=== PATIENT | male | born 1945 | race Native Hawaiian/Other Pacific Islander ===

== ENCOUNTER 2020-08-24 15:26 | Inpatient (IN) | payer MEDICARE, OTHER ==
[~2020-08-24] VITALS: Ht 160 cm; Wt 66.2 kg
[2020-08-24 18:40] VITALS: BP 142/78
[2020-08-24] MEDS ORDERED: CHOLECALCIFEROL (VIT D3) 1,000 UNITS [25 MCG] TABLET GT SCH (19:15)
[2020-08-24] MEDS ORDERED: ACETAMINOPHEN 325 MG TABLET PO PRN (19:15)
[2020-08-24] MEDS ORDERED: DEXTROSE 50%-WATER 25 GM/50 ML SYRINGE IVP PRN (19:30)
[2020-08-24 20:46] VITALS: BP 121/80
[2020-08-24] MEDS ORDERED: DOCUSATE SODIUM 100 MG CAPSULE PO SCH (21:00)
[2020-08-24] MEDS ORDERED: SENNA 187 MG TABLET PO SCH (21:00)
[2020-08-24] MEDS: BACLOFEN 10 MG TABLET GT SCH (21:06)
[2020-08-24] MEDS: CARVEDILOL 12.5 MG TABLET GT SCH (21:07)
[2020-08-24] MEDS: ATORVASTATIN CALCIUM 40 MG TABLET GT SCH (21:07)
[2020-08-24] MEDS: INSULIN LISPRO 100 UNITS/ML SQ PRN (21:08)
[2020-08-24 21:38] LABS: GLUCOMETER DEV NAME(LOC) 2WR.1C; GLUCOSE,POINT OF CARE 198 MG/DL (70-110)
[2020-08-24] MEDS ORDERED: ACETAMINOPHEN 650 MG/20.3 ML SOLUTION UDCUP GT PRN (22:15)
[2020-08-25] VITALS: BP 118/74
[2020-08-25 06:03] LABS: GLUCOMETER DEV NAME(LOC) 2WR.2B; GLUCOSE,POINT OF CARE 109 MG/DL (70-110)
[2020-08-25 08:10] VITALS: BP 140/80
[2020-08-25 08:18] LABS: BASOPHILS % (AUTO) 0.8 % (0.0-2.0); EOSINOPHILS % (AUTO) 4.9 % (1.0-6.0); HEMATOCRIT 34.7 % (41-53); HEMOGLOBIN 11.5 g/dL (13.5-17.5); LYMPHOCYTES # (AUTO) 1.7 K/uL (1.0-4.8); LYMPHOCYTES % (AUTO) 21.9 % (22.0-44.0); MEAN CORPUSCULAR HEMOGLOBIN 29.6 pg (26.0-34.0); MEAN CORPUSCULAR HGB CONC 33.1 G/dL (31.0-37.0); MEAN CORPUSCULAR VOLUME 90 fL (80-100); MONOCYTES # (AUTO) 0.7 K/uL (0.1-1.0); NEUTROPHILS # (AUTO) 4.8 K/uL (1.8-7.7); NEUTROPHILS % (AUTO) 63.4 % (40.0-70.0); PLATELET COUNT (AUTO) 300 K/uL (150-450); RED BLOOD CELL COUNT(AUTO) 3.87 MIL/uL (4.50-5.90); RED CELL DISTRIBUTION WIDTH 14.2 % (11.5-14.5)
[2020-08-25 08:19] LABS: ALANINE AMINOTRANSFERASE 59 U/L (12-78); ALBUMIN 2.9 g/dL (3.4-5.0); ALKALINE PHOSPHATASE 112 U/L (46-116); ANION GAP 6 mmol/L (8-16); ASPARTATE AMINOTRANSFERASE 38 U/L (15-37); BILIRUBIN,TOTAL 0.7 mg/dL (0.1-1.0); CALCIUM, TOTAL 8.8 mg/dL (8.8-10.5); CARBON DIOXIDE 29 mmol/L (22-29); CHLORIDE 102 mmol/L (98-107); CREATININE 0.94 mg/dL (0.60-1.30); GLUCOSE,RANDOM 116 mg/dL (70-110); POTASSIUM 3.8 mmol/L (3.5-5.1); SODIUM SERUM 137 mmol/L (136-145); TOTAL PROTEIN, SERUM 7.5 g/dL (6.4-8.2); UREA NITROGEN, BLOOD 14 mg/dL (7-18)
[2020-08-25 08:20] LABS: GLOMERULAR FILTR. RATE CALC > 60 mL/min (>60)
[2020-08-25] MEDS: CARVEDILOL 12.5 MG TABLET GT SCH ×2 (10:05→20:38)
[2020-08-25] MEDS: BACLOFEN 10 MG TABLET GT SCH ×2 (10:06→20:38)
[2020-08-25] MEDS: DOCUSATE SODIUM 100 MG/10 ML LIQUID UDCUP GT SCH ×2 (10:06→20:38)
[2020-08-25] MEDS: PRENATAL NO.137/IRON/FOLIC ACID TABLET GT SCH (10:06)
[2020-08-25] MEDS: CHOLECALCIFEROL (VIT D3) 1,000 UNITS [25 MCG] TABLET GT SCH (10:06)
[2020-08-25] MEDS: LANSOPRAZOLE 30 MG SOLUBLE TABLET GT SCH (10:06)
[2020-08-25] MEDS: AmLODIPine BESYLATE 5 MG TABLET GT SCH (10:06)
[2020-08-25 13:07] LABS: GLUCOMETER DEV NAME(LOC) 2WR.2B; GLUCOSE,POINT OF CARE 130 MG/DL (70-110)
[2020-08-25 16:00] VITALS: BP 119/72
[2020-08-25] MEDS: INSULIN LISPRO 100 UNITS/ML SQ PRN ×2 (17:59→21:09)
[2020-08-25 18:24] LABS: GLUCOMETER DEV NAME(LOC) 2WR.2B; GLUCOSE,POINT OF CARE 165 MG/DL (70-110)
[2020-08-25] MEDS ORDERED: PNEUMOCOCCAL VACCINE POLYVALENT 0.5 ML VIAL [PPSV23] IM. ONE (19:15)
[2020-08-25 20:35] VITALS: BP 125/77
[2020-08-25] MEDS: SENNA 218 MG/5 ML SYRUP ORAL.SYG GT SCH (20:38)
[2020-08-25] MEDS: ATORVASTATIN CALCIUM 40 MG TABLET GT SCH (20:38)
[2020-08-25 21:29] LABS: GLUCOMETER DEV NAME(LOC) 2WR.2B; GLUCOSE,POINT OF CARE 146 MG/DL (70-110)
[2020-08-26 03:41] VITALS: BP 127/77
[2020-08-26 06:45] LABS: GLUCOMETER DEV NAME(LOC) 2WR.1C; GLUCOSE,POINT OF CARE 119 MG/DL (70-110)
[2020-08-26 07:15] VITALS: BP 114/72
[2020-08-26 08:52] LABS: HEMOGLOBIN A1C 6.8 % (3.8-5.6)
[2020-08-26 08:57] LABS: CHOL/HDL RATIO 3.8 (4.2-7.3)
[2020-08-26] MEDS: BACLOFEN 10 MG TABLET GT SCH ×2 (10:00→21:00)
[2020-08-26] MEDS: DOCUSATE SODIUM 100 MG/10 ML LIQUID UDCUP GT SCH ×2 (10:00→21:00)
[2020-08-26] MEDS: CARVEDILOL 12.5 MG TABLET GT SCH ×2 (10:00→21:00)
[2020-08-26] MEDS: AmLODIPine BESYLATE 5 MG TABLET GT SCH (10:00)
[2020-08-26] MEDS: PRENATAL NO.137/IRON/FOLIC ACID TABLET GT SCH (10:00)
[2020-08-26] MEDS: LANSOPRAZOLE 30 MG SOLUBLE TABLET GT SCH (10:01)
[2020-08-26] MEDS: CHOLECALCIFEROL (VIT D3) 1,000 UNITS [25 MCG] TABLET GT SCH (10:01)
[2020-08-26] MEDS: INSULIN LISPRO 100 UNITS/ML SQ PRN (12:33)
[2020-08-26 13:45] LABS: GLUCOMETER DEV NAME(LOC) 2WR.1C; GLUCOSE,POINT OF CARE 141 MG/DL (70-110)
[2020-08-26 16:32] VITALS: BP 118/51
[2020-08-26] MEDS: ATORVASTATIN CALCIUM 40 MG TABLET GT SCH (21:00)
[2020-08-26] MEDS: SENNA 218 MG/5 ML SYRUP ORAL.SYG GT SCH (21:01)
[2020-08-26 21:23] LABS: GLUCOMETER DEV NAME(LOC) 2WR.1C; GLUCOSE,POINT OF CARE 94 MG/DL (70-110)
[2020-08-26 22:12] LABS: GLUCOMETER DEV NAME(LOC) 2WR.2B; GLUCOSE,POINT OF CARE 136 MG/DL (70-110)
[2020-08-27 01:44] VITALS: BP 107/70
[2020-08-27 05:55] LABS: GLUCOMETER DEV NAME(LOC) 2WR.2B; GLUCOSE,POINT OF CARE 134 MG/DL (70-110)
[2020-08-27] MEDS: PRENATAL NO.137/IRON/FOLIC ACID TABLET GT SCH (07:27)
[2020-08-27] MEDS: CHOLECALCIFEROL (VIT D3) 1,000 UNITS [25 MCG] TABLET GT SCH (07:27)
[2020-08-27] MEDS: CARVEDILOL 12.5 MG TABLET GT SCH ×2 (07:28→20:44)
[2020-08-27] MEDS: BACLOFEN 10 MG TABLET GT SCH (07:28)
[2020-08-27] MEDS: AmLODIPine BESYLATE 5 MG TABLET GT SCH (07:28)
[2020-08-27] MEDS: DOCUSATE SODIUM 100 MG/10 ML LIQUID UDCUP GT SCH ×2 (07:28→20:44)
[2020-08-27] MEDS: LANSOPRAZOLE 30 MG SOLUBLE TABLET GT SCH (07:28)
[2020-08-27 09:26] VITALS: BP 127/78
[2020-08-27] MEDS ORDERED: LORA10TA7 PO (13:00)
[2020-08-27] MEDS ORDERED: CHOL200016 PO (13:00)
[2020-08-27] MEDS ORDERED: ASPI-1450 PO (13:00)
[2020-08-27] MEDS ORDERED: LISI-894 PO (13:00)
[2020-08-27] MEDS ORDERED: ATOR40TA28 PO (13:00)
[2020-08-27] MEDS: INSULIN LISPRO 100 UNITS/ML SQ PRN (13:40)
[2020-08-27 13:50] LABS: GLUCOMETER DEV NAME(LOC) 2WR.1C; GLUCOSE,POINT OF CARE 202 MG/DL (70-110)
[2020-08-27 17:15] VITALS: BP 127/80
[2020-08-27] MEDS: MetFORMIN HCL 500 MG TABLET PO SCH (17:32)
[2020-08-27 19:17] LABS: GLUCOMETER DEV NAME(LOC) 2WR.2B; GLUCOSE,POINT OF CARE 99 MG/DL (70-110)
[2020-08-27] MEDS: ATORVASTATIN CALCIUM 40 MG TABLET GT SCH (20:44)
[2020-08-27] MEDS: SENNA 218 MG/5 ML SYRUP ORAL.SYG GT SCH (20:44)
[2020-08-27 21:51] LABS: GLUCOMETER DEV NAME(LOC) 2WR.2B; GLUCOSE,POINT OF CARE 129 MG/DL (70-110)
[2020-08-28] VITALS: BP 113/68
[2020-08-28 06:37] LABS: GLUCOMETER DEV NAME(LOC) 2WR.2B; GLUCOSE,POINT OF CARE 118 MG/DL (70-110)
[2020-08-28] MEDS: PRENATAL NO.137/IRON/FOLIC ACID TABLET GT SCH (08:06)
[2020-08-28] MEDS: MetFORMIN HCL 500 MG TABLET PO SCH ×2 (08:07→17:48)
[2020-08-28] MEDS: AmLODIPine BESYLATE 5 MG TABLET GT SCH (08:07)
[2020-08-28] MEDS: CARVEDILOL 12.5 MG TABLET GT SCH ×2 (08:07→20:11)
[2020-08-28] MEDS: LANSOPRAZOLE 30 MG SOLUBLE TABLET GT SCH (08:08)
[2020-08-28] MEDS: CHOLECALCIFEROL (VIT D3) 1,000 UNITS [25 MCG] TABLET GT SCH (08:08)
[2020-08-28] MEDS: DOCUSATE SODIUM 100 MG/10 ML LIQUID UDCUP GT SCH ×2 (08:09→20:12)
[2020-08-28 09:15] VITALS: BP 119/73
[2020-08-28 12:14] LABS: GLUCOMETER DEV NAME(LOC) 2WR.2B; GLUCOSE,POINT OF CARE 134 MG/DL (70-110)
[2020-08-28 16:40] VITALS: BP 129/87
[2020-08-28] MEDS ORDERED: MAGNESIUM HYDROXIDE SUSPENSION 30 ML UDCUP GT PRN (17:15)
[2020-08-28 18:42] LABS: GLUCOMETER DEV NAME(LOC) 2WR.1C; GLUCOSE,POINT OF CARE 114 MG/DL (70-110)
[2020-08-28 20:06] VITALS: BP 112/65
[2020-08-28] MEDS: ATORVASTATIN CALCIUM 40 MG TABLET GT SCH (20:10)
[2020-08-28] MEDS: SENNA 218 MG/5 ML SYRUP ORAL.SYG GT SCH (20:11)
[2020-08-28] MEDS: INSULIN LISPRO 100 UNITS/ML SQ PRN (20:19)
[2020-08-28 20:41] LABS: GLUCOMETER DEV NAME(LOC) 2WR.1C; GLUCOSE,POINT OF CARE 174 MG/DL (70-110)
[2020-08-29] VITALS: BP 114/77
[2020-08-29 06:09] LABS: GLUCOMETER DEV NAME(LOC) 2WR.2B; GLUCOSE,POINT OF CARE 129 MG/DL (70-110)
[2020-08-29 07:22] VITALS: BP 143/80
[2020-08-29] MEDS: CARVEDILOL 12.5 MG TABLET GT SCH ×2 (08:14→20:44)
[2020-08-29] MEDS: LANSOPRAZOLE 30 MG SOLUBLE TABLET GT SCH (08:14)
[2020-08-29] MEDS: MetFORMIN HCL 500 MG TABLET PO SCH ×2 (08:14→17:53)
[2020-08-29] MEDS: CHOLECALCIFEROL (VIT D3) 1,000 UNITS [25 MCG] TABLET GT SCH (08:14)
[2020-08-29] MEDS: PRENATAL NO.137/IRON/FOLIC ACID TABLET GT SCH (08:14)
[2020-08-29] MEDS: DOCUSATE SODIUM 100 MG/10 ML LIQUID UDCUP GT SCH ×2 (08:14→20:42)
[2020-08-29] MEDS: AmLODIPine BESYLATE 5 MG TABLET GT SCH (08:14)
[2020-08-29 13:07] LABS: GLUCOMETER DEV NAME(LOC) 2WR.2B; GLUCOSE,POINT OF CARE 135 MG/DL (70-110)
[2020-08-29] MEDS: MAGNESIUM HYDROXIDE SUSPENSION 30 ML UDCUP GT PRN ×2 (13:22→20:43)
[2020-08-29 15:17] VITALS: BP 144/90
[2020-08-29 18:17] LABS: GLUCOMETER DEV NAME(LOC) 2WR.2B; GLUCOSE,POINT OF CARE 109 MG/DL (70-110)
[2020-08-29 20:10] VITALS: BP 111/70
[2020-08-29] MEDS: INSULIN LISPRO 100 UNITS/ML SQ PRN (20:41)
[2020-08-29] MEDS: SENNA 218 MG/5 ML SYRUP ORAL.SYG GT SCH (20:42)
[2020-08-29] MEDS: ATORVASTATIN CALCIUM 40 MG TABLET GT SCH (20:44)
[2020-08-29 21:21] LABS: GLUCOMETER DEV NAME(LOC) 2WR.2B; GLUCOSE,POINT OF CARE 165 MG/DL (70-110)
[2020-08-30] VITALS: BP 111/68
[2020-08-30] MEDS ORDERED: METF-960 PO (04:09)
[2020-08-30] MEDS ORDERED: DOCU-350 PO (04:09)
[2020-08-30] MEDS ORDERED: PREN-217 PO (04:15)
[2020-08-30] MEDS ORDERED: CARV12 PO (04:15)
[2020-08-30] MEDS ORDERED: CARV12 GT (04:15)
[2020-08-30] MEDS ORDERED: AMLO-257 PO (04:15)
[2020-08-30] MEDS ORDERED: CHOL100044 PO (04:18)
[2020-08-30] MEDS ORDERED: ATOR40TA28 PO (04:20)
[2020-08-30] MEDS ORDERED: LANS30TA15 PO (04:20)
[2020-08-30] MEDS ORDERED: SENN8.8S6 PO (04:28)
[2020-08-30] MEDS ORDERED: INSU100V SQ (04:28)
[2020-08-30 05:49] LABS: GLUCOMETER DEV NAME(LOC) 2WR.2B; GLUCOSE,POINT OF CARE 125 MG/DL (70-110)
[2020-08-30] MEDS: MAGNESIUM HYDROXIDE SUSPENSION 30 ML UDCUP GT PRN ×3 (06:22→20:58)
[2020-08-30] MEDS: DOCUSATE SODIUM 100 MG/10 ML LIQUID UDCUP GT SCH ×2 (08:42→20:58)
[2020-08-30] MEDS: AmLODIPine BESYLATE 5 MG TABLET GT SCH (08:43)
[2020-08-30] MEDS: MetFORMIN HCL 500 MG TABLET PO SCH ×2 (08:43→17:52)
[2020-08-30] MEDS: CARVEDILOL 12.5 MG TABLET GT SCH ×2 (08:43→21:00)
[2020-08-30] MEDS: LANSOPRAZOLE 30 MG SOLUBLE TABLET GT SCH (08:43)
[2020-08-30] MEDS: CHOLECALCIFEROL (VIT D3) 1,000 UNITS [25 MCG] TABLET GT SCH (08:43)
[2020-08-30] MEDS: PRENATAL NO.137/IRON/FOLIC ACID TABLET GT SCH (08:43)
[2020-08-30 09:33] VITALS: BP 129/81
[2020-08-30 11:37] LABS: GLUCOMETER DEV NAME(LOC) 2WR.1C; GLUCOSE,POINT OF CARE 130 MG/DL (70-110)
[2020-08-30 17:43] VITALS: BP 117/69
[2020-08-30] MEDS: ATORVASTATIN CALCIUM 40 MG TABLET GT SCH (20:58)
[2020-08-30 21:01] VITALS: BP 96/63
[2020-08-30] MEDS: SENNA 218 MG/5 ML SYRUP ORAL.SYG GT SCH (22:14)
[2020-08-30 22:25] LABS: GLUCOMETER DEV NAME(LOC) 2WR.2B; GLUCOSE,POINT OF CARE 102 MG/DL (70-110)
[2020-08-31 00:01] VITALS: BP 123/73
[2020-08-31 06:22] LABS: GLUCOMETER DEV NAME(LOC) 2WR.2B; GLUCOSE,POINT OF CARE 119 MG/DL (70-110)
[2020-08-31] MEDS: AmLODIPine BESYLATE 5 MG TABLET GT SCH (08:21)
[2020-08-31] MEDS: DOCUSATE SODIUM 100 MG/10 ML LIQUID UDCUP GT SCH ×2 (08:21→20:20)
[2020-08-31] MEDS: PRENATAL NO.137/IRON/FOLIC ACID TABLET GT SCH (08:21)
[2020-08-31] MEDS: LANSOPRAZOLE 30 MG SOLUBLE TABLET GT SCH (08:21)
[2020-08-31] MEDS: CARVEDILOL 12.5 MG TABLET GT SCH ×2 (08:21→20:21)
[2020-08-31] MEDS: CHOLECALCIFEROL (VIT D3) 1,000 UNITS [25 MCG] TABLET GT SCH (08:21)
[2020-08-31] MEDS: MetFORMIN HCL 500 MG TABLET PO SCH ×2 (08:21→17:29)
[2020-08-31 09:09] VITALS: BP 141/74
[2020-08-31 12:34] LABS: GLUCOMETER DEV NAME(LOC) 2WR.2B; GLUCOSE,POINT OF CARE 115 MG/DL (70-110)
[2020-08-31 15:12] VITALS: BP 117/75
[2020-08-31 18:51] LABS: GLUCOMETER DEV NAME(LOC) 2WR.2B; GLUCOSE,POINT OF CARE 101 MG/DL (70-110)
[2020-08-31 20:19] VITALS: BP 139/88
[2020-08-31] MEDS: SENNA 218 MG/5 ML SYRUP ORAL.SYG GT SCH (20:21)
[2020-08-31] MEDS: ATORVASTATIN CALCIUM 40 MG TABLET GT SCH (20:21)
[2020-09-01] VITALS: BP 106/63
[2020-09-01 02:07] LABS: GLUCOMETER DEV NAME(LOC) 2WR.2B; GLUCOSE,POINT OF CARE 131 MG/DL (70-110)
[2020-09-01 06:14] LABS: GLUCOMETER DEV NAME(LOC) 2WR.1C; GLUCOSE,POINT OF CARE 117 MG/DL (70-110)
[2020-09-01 08:05] VITALS: BP 120/70
[2020-09-01] MEDS: CHOLECALCIFEROL (VIT D3) 1,000 UNITS [25 MCG] TABLET GT SCH (08:12)
[2020-09-01] MEDS: LANSOPRAZOLE 30 MG SOLUBLE TABLET GT SCH (08:12)
[2020-09-01] MEDS: MetFORMIN HCL 500 MG TABLET PO SCH ×2 (08:13→17:48)
[2020-09-01] MEDS: CARVEDILOL 12.5 MG TABLET GT SCH ×2 (08:13→20:29)
[2020-09-01] MEDS: PRENATAL NO.137/IRON/FOLIC ACID TABLET GT SCH (08:14)
[2020-09-01] MEDS: DOCUSATE SODIUM 100 MG/10 ML LIQUID UDCUP GT SCH ×2 (08:14→20:29)
[2020-09-01 13:03] LABS: GLUCOMETER DEV NAME(LOC) 2WR.2B; GLUCOSE,POINT OF CARE 109 MG/DL (70-110)
[2020-09-01 16:02] VITALS: BP 114/77
[2020-09-01 17:57] LABS: GLUCOMETER DEV NAME(LOC) 2WR.2B; GLUCOSE,POINT OF CARE 102 MG/DL (70-110)
[2020-09-01] MEDS: SENNA 218 MG/5 ML SYRUP ORAL.SYG GT SCH (20:29)
[2020-09-01] MEDS: ATORVASTATIN CALCIUM 40 MG TABLET GT SCH (20:29)
[2020-09-01 20:31] VITALS: BP 109/74
[2020-09-01 22:04] LABS: GLUCOMETER DEV NAME(LOC) 2WR.1C; GLUCOSE,POINT OF CARE 113 MG/DL (70-110)
[2020-09-02] VITALS: BP 110/67
[2020-09-02 08:01] VITALS: BP 126/78
[2020-09-02] MEDS: PRENATAL NO.137/IRON/FOLIC ACID TABLET GT SCH (08:29)
[2020-09-02] MEDS: CARVEDILOL 12.5 MG TABLET GT SCH ×2 (08:29→20:59)
[2020-09-02] MEDS: CHOLECALCIFEROL (VIT D3) 1,000 UNITS [25 MCG] TABLET GT SCH (08:29)
[2020-09-02] MEDS: LANSOPRAZOLE 30 MG SOLUBLE TABLET GT SCH (08:29)
[2020-09-02] MEDS: MetFORMIN HCL 500 MG TABLET PO SCH ×2 (08:29→17:36)
[2020-09-02] MEDS: DOCUSATE SODIUM 100 MG/10 ML LIQUID UDCUP GT SCH ×2 (08:30→21:00)
[2020-09-02 13:12] LABS: GLUCOMETER DEV NAME(LOC) 2WR.2B; GLUCOSE,POINT OF CARE 138 MG/DL (70-110)
[2020-09-02 14:55] LABS: GLUCOMETER DEV NAME(LOC) 2WR.1C; GLUCOSE,POINT OF CARE 102 MG/DL (70-110)
[2020-09-02 15:40] VITALS: BP 118/75
[2020-09-02 18:09] LABS: GLUCOMETER DEV NAME(LOC) 2WR.1C; GLUCOSE,POINT OF CARE 106 MG/DL (70-110)
[2020-09-02 20:40] VITALS: BP 114/69
[2020-09-02] MEDS: SENNA 218 MG/5 ML SYRUP ORAL.SYG GT SCH (20:59)
[2020-09-02] MEDS: ATORVASTATIN CALCIUM 40 MG TABLET GT SCH (20:59)
[2020-09-02 21:19] LABS: GLUCOMETER DEV NAME(LOC) 2WR.1C; GLUCOSE,POINT OF CARE 105 MG/DL (70-110)
[2020-09-03] VITALS: BP 108/72
[2020-09-03 05:56] LABS: GLUCOMETER DEV NAME(LOC) 2WR.2B; GLUCOSE,POINT OF CARE 96 MG/DL (70-110)
[2020-09-03] MEDS: CHOLECALCIFEROL (VIT D3) 1,000 UNITS [25 MCG] TABLET GT SCH (07:46)
[2020-09-03] MEDS: MetFORMIN HCL 500 MG TABLET PO SCH ×2 (07:46→17:41)
[2020-09-03] MEDS: CARVEDILOL 12.5 MG TABLET GT SCH ×2 (07:46→20:46)
[2020-09-03] MEDS: PRENATAL NO.137/IRON/FOLIC ACID TABLET GT SCH (07:46)
[2020-09-03] MEDS: LANSOPRAZOLE 30 MG SOLUBLE TABLET GT SCH (07:46)
[2020-09-03] MEDS: DOCUSATE SODIUM 100 MG/10 ML LIQUID UDCUP GT SCH ×2 (07:46→20:42)
[2020-09-03 08:15] VITALS: BP 120/77
[2020-09-03 13:47] LABS: GLUCOMETER DEV NAME(LOC) 2WR.2B; GLUCOSE,POINT OF CARE 106 MG/DL (70-110)
[2020-09-03 16:24] VITALS: BP 115/88
[2020-09-03 18:39] LABS: GLUCOMETER DEV NAME(LOC) 2WR.2B; GLUCOSE,POINT OF CARE 114 MG/DL (70-110)
[2020-09-03 20:40] VITALS: BP 124/76
[2020-09-03] MEDS: ATORVASTATIN CALCIUM 40 MG TABLET GT SCH (20:42)
[2020-09-03] MEDS: SENNA 218 MG/5 ML SYRUP ORAL.SYG GT SCH (20:42)
[2020-09-03 21:02] LABS: GLUCOMETER DEV NAME(LOC) 2WR.2B; GLUCOSE,POINT OF CARE 136 MG/DL (70-110)
[2020-09-04 00:39] VITALS: BP 112/70
[2020-09-04 05:51] LABS: GLUCOMETER DEV NAME(LOC) 2WR.1C; GLUCOSE,POINT OF CARE 108 MG/DL (70-110)
[2020-09-04] MEDS: MetFORMIN HCL 500 MG TABLET PO SCH ×2 (07:30→18:24)
[2020-09-04 09:00] VITALS: BP 131/79
[2020-09-04] MEDS: LANSOPRAZOLE 30 MG SOLUBLE TABLET GT SCH (09:00)
[2020-09-04] MEDS: PRENATAL NO.137/IRON/FOLIC ACID TABLET GT SCH (09:00)
[2020-09-04] MEDS: CARVEDILOL 12.5 MG TABLET GT SCH ×2 (09:00→20:40)
[2020-09-04] MEDS: DOCUSATE SODIUM 100 MG/10 ML LIQUID UDCUP GT SCH ×2 (09:00→20:39)
[2020-09-04] MEDS: CHOLECALCIFEROL (VIT D3) 1,000 UNITS [25 MCG] TABLET GT SCH (09:00)
[2020-09-04 11:41] LABS: GLUCOMETER DEV NAME(LOC) 2WR.2B; GLUCOSE,POINT OF CARE 111 MG/DL (70-110)
[2020-09-04 16:00] VITALS: BP 129/80
[2020-09-04 18:32] LABS: GLUCOMETER DEV NAME(LOC) 2WR.1C; GLUCOSE,POINT OF CARE 92 MG/DL (70-110)
[2020-09-04 20:32] VITALS: BP 118/76
[2020-09-04] MEDS: SENNA 218 MG/5 ML SYRUP ORAL.SYG GT SCH (20:39)
[2020-09-04] MEDS: ATORVASTATIN CALCIUM 40 MG TABLET GT SCH (20:40)
[2020-09-05] VITALS: BP 109/54
[2020-09-05 00:23] LABS: GLUCOMETER DEV NAME(LOC) 2WR.2B; GLUCOSE,POINT OF CARE 105 MG/DL (70-110)
[2020-09-05 05:44] LABS: GLUCOMETER DEV NAME(LOC) 2WR.2B; GLUCOSE,POINT OF CARE 99 MG/DL (70-110)
[2020-09-05] MEDS: MetFORMIN HCL 500 MG TABLET PO SCH ×2 (08:14→17:58)
[2020-09-05] MEDS: CHOLECALCIFEROL (VIT D3) 1,000 UNITS [25 MCG] TABLET GT SCH (08:14)
[2020-09-05] MEDS: CARVEDILOL 12.5 MG TABLET GT SCH ×2 (08:14→20:16)
[2020-09-05] MEDS: LANSOPRAZOLE 30 MG SOLUBLE TABLET GT SCH (08:14)
[2020-09-05] MEDS: DOCUSATE SODIUM 100 MG/10 ML LIQUID UDCUP GT SCH ×2 (08:14→20:16)
[2020-09-05] MEDS: PRENATAL NO.137/IRON/FOLIC ACID TABLET GT SCH (08:14)
[2020-09-05 08:32] VITALS: BP 127/69
[2020-09-05 15:24] VITALS: BP 134/83
[2020-09-05 20:14] VITALS: BP 111/70
[2020-09-05] MEDS: SENNA 218 MG/5 ML SYRUP ORAL.SYG GT SCH (20:16)
[2020-09-05] MEDS: ATORVASTATIN CALCIUM 40 MG TABLET GT SCH (20:16)
[2020-09-06] VITALS (12 sets, daily range): BP systolic 109–133; BP diastolic 66–89
[2020-09-06] MEDS ORDERED: ACET-2163 PO (01:34)
[2020-09-06] MEDS ORDERED: MOM30 PO (01:36)
[2020-09-06] MEDS: LANSOPRAZOLE 30 MG SOLUBLE TABLET GT SCH (08:09)
[2020-09-06] MEDS: MetFORMIN HCL 500 MG TABLET PO SCH ×2 (08:09→16:41)
[2020-09-06] MEDS: CARVEDILOL 12.5 MG TABLET GT SCH ×2 (08:09→20:03)
[2020-09-06] MEDS: CHOLECALCIFEROL (VIT D3) 1,000 UNITS [25 MCG] TABLET GT SCH (08:09)
[2020-09-06] MEDS: DOCUSATE SODIUM 100 MG/10 ML LIQUID UDCUP GT SCH ×2 (08:09→20:03)
[2020-09-06] MEDS: PRENATAL NO.137/IRON/FOLIC ACID TABLET GT SCH (08:09)
[2020-09-06 11:32] LABS: COVID AG,FIA SOURCE NASOPHARYNGEAL
[2020-09-06 13:10] LABS: GLUCOMETER DEV NAME(LOC) 2WR.2B; GLUCOSE,POINT OF CARE 159 MG/DL (70-110)
[2020-09-06] MEDS: SENNA 218 MG/5 ML SYRUP ORAL.SYG GT SCH (20:03)
[2020-09-06] MEDS: ATORVASTATIN CALCIUM 40 MG TABLET GT SCH (20:03)
[2020-09-06] MEDS ORDERED: ATORVASTATIN CALCIUM 40 MG TABLET PO SCH (21:00)
[2020-09-06] MEDS ORDERED: CARVEDILOL 12.5 MG TABLET PO SCH (21:00)
[2020-09-06] MEDS ORDERED: SENNA 187 MG TABLET PO SCH (21:00)
[2020-09-06] MEDS ORDERED: ACETAMINOPHEN 325 MG TABLET PO PRN (21:00)
[2020-09-06] MEDS ORDERED: DOCUSATE SODIUM 250 MG CAPSULE PO SCH (21:00)
[2020-09-07] VITALS: BP 110/62
[2020-09-07 03:15] VITALS: BP 110/62
[2020-09-07] MEDS: PRENATAL NO.137/IRON/FOLIC ACID TABLET PO SCH (07:49)
[2020-09-07] MEDS: LANSOPRAZOLE 30 MG SOLUBLE TABLET GT SCH (07:50)
[2020-09-07] MEDS: CHOLECALCIFEROL (VIT D3) 1,000 UNITS [25 MCG] TABLET PO SCH (07:50)
[2020-09-07] MEDS: MetFORMIN HCL 500 MG TABLET PO SCH ×2 (07:50→17:34)
[2020-09-07 08:09] VITALS: BP 120/74
[2020-09-07] MEDS: CARVEDILOL 12.5 MG TABLET PO SCH ×2 (08:49→20:23)
[2020-09-07] MEDS: DOCUSATE SODIUM 250 MG CAPSULE PO SCH ×2 (08:49→20:22)
[2020-09-07 09:16] VITALS: BP 120/74
[2020-09-07 16:58] VITALS: BP 113/60
[2020-09-07] MEDS: MAGNESIUM HYDROXIDE SUSPENSION 30 ML UDCUP PO PRN (19:05)
[2020-09-07] MEDS: ATORVASTATIN CALCIUM 40 MG TABLET PO SCH (20:23)
[2020-09-07] MEDS: SENNA 187 MG TABLET PO SCH (20:23)
[2020-09-07] MEDS ORDERED: DOCUSATE SODIUM 250 MG CAPSULE PO SCH (21:00)
[2020-09-07] MEDS ORDERED: CARVEDILOL 12.5 MG TABLET PO SCH (21:00)
[2020-09-08] VITALS (9 sets, daily range): BP systolic 92–143; BP diastolic 57–81
[2020-09-08] MEDS: CHOLECALCIFEROL (VIT D3) 1,000 UNITS [25 MCG] TABLET PO SCH (08:10)
[2020-09-08] MEDS: MetFORMIN HCL 500 MG TABLET PO SCH ×2 (08:10→17:05)
[2020-09-08] MEDS: LANSOPRAZOLE 30 MG SOLUBLE TABLET GT SCH (08:10)
[2020-09-08] MEDS: DOCUSATE SODIUM 250 MG CAPSULE PO SCH ×2 (08:10→20:45)
[2020-09-08] MEDS: PRENATAL NO.137/IRON/FOLIC ACID TABLET PO SCH (08:11)
[2020-09-08] MEDS: CARVEDILOL 12.5 MG TABLET PO SCH (08:11)
[2020-09-08] MEDS: ATORVASTATIN CALCIUM 40 MG TABLET PO SCH (20:44)
[2020-09-08] MEDS: CARVEDILOL 6.25 MG TABLET PO SCH (20:45)
[2020-09-08] MEDS: SENNA 187 MG TABLET PO SCH (20:45)
[2020-09-08] MEDS: MAGNESIUM HYDROXIDE SUSPENSION 30 ML UDCUP PO PRN (23:14)
[2020-09-09] MEDS: MAGNESIUM HYDROXIDE SUSPENSION 30 ML UDCUP PO PRN ×2 (05:18→16:00)
[2020-09-09 08:00] VITALS: BP 139/84
[2020-09-09] MEDS: LANSOPRAZOLE 30 MG SOLUBLE TABLET GT SCH (08:08)
[2020-09-09] MEDS: CARVEDILOL 6.25 MG TABLET PO SCH ×2 (08:08→21:04)
[2020-09-09] MEDS: DOCUSATE SODIUM 250 MG CAPSULE PO SCH ×2 (08:08→21:04)
[2020-09-09] MEDS: MetFORMIN HCL 500 MG TABLET PO SCH ×2 (08:08→17:22)
[2020-09-09] MEDS: CHOLECALCIFEROL (VIT D3) 1,000 UNITS [25 MCG] TABLET PO SCH (08:09)
[2020-09-09] MEDS: PRENATAL NO.137/IRON/FOLIC ACID TABLET PO SCH (08:09)
[2020-09-09 16:00] VITALS: BP 130/77
[2020-09-09 21:00] VITALS: BP 123/76
[2020-09-09] MEDS: SENNA 187 MG TABLET PO SCH (21:03)
[2020-09-09] MEDS: ATORVASTATIN CALCIUM 40 MG TABLET PO SCH (21:03)
[2020-09-10] VITALS: BP 120/75
[2020-09-10] MEDS ORDERED: SENN8.6T90 PO (00:15)
[2020-09-10] MEDS: MetFORMIN HCL 500 MG TABLET PO SCH ×2 (08:05→17:41)
[2020-09-10] MEDS: DOCUSATE SODIUM 250 MG CAPSULE PO SCH ×2 (08:05→20:47)
[2020-09-10] MEDS: CARVEDILOL 6.25 MG TABLET PO SCH ×2 (08:05→20:47)
[2020-09-10] MEDS: CHOLECALCIFEROL (VIT D3) 1,000 UNITS [25 MCG] TABLET PO SCH (08:05)
[2020-09-10] MEDS: LANSOPRAZOLE 30 MG SOLUBLE TABLET GT SCH (08:05)
[2020-09-10] MEDS: PRENATAL NO.137/IRON/FOLIC ACID TABLET PO SCH (08:05)
[2020-09-10 09:14] VITALS: BP 142/81
[2020-09-10 09:27] VITALS: BP 142/81
[2020-09-10 17:14] VITALS: BP 135/72
[2020-09-10 20:30] VITALS: BP 120/70
[2020-09-10] MEDS: SENNA 187 MG TABLET PO SCH (20:47)
[2020-09-10] MEDS: ATORVASTATIN CALCIUM 40 MG TABLET PO SCH (20:47)
[2020-09-11] VITALS: BP 132/78
[2020-09-11 08:20] VITALS: BP 137/80
[2020-09-11] MEDS: CHOLECALCIFEROL (VIT D3) 1,000 UNITS [25 MCG] TABLET PO SCH (09:01)
[2020-09-11] MEDS: PRENATAL NO.137/IRON/FOLIC ACID TABLET PO SCH (09:01)
[2020-09-11] MEDS: DOCUSATE SODIUM 250 MG CAPSULE PO SCH ×2 (09:01→20:56)
[2020-09-11] MEDS: CARVEDILOL 6.25 MG TABLET PO SCH ×2 (09:01→20:57)
[2020-09-11] MEDS: LANSOPRAZOLE 30 MG SOLUBLE TABLET GT SCH (09:01)
[2020-09-11] MEDS: MetFORMIN HCL 500 MG TABLET PO SCH ×2 (09:02→17:47)
[2020-09-11 11:08] LABS: BASOPHILS % (AUTO) 0.6 % (0.0-2.0); EOSINOPHILS % (AUTO) 3.8 % (1.0-6.0); HEMATOCRIT 33.1 % (41-53); HEMOGLOBIN 10.8 g/dL (13.5-17.5); LYMPHOCYTES # (AUTO) 1.1 K/uL (1.0-4.8); LYMPHOCYTES % (AUTO) 17.7 % (22.0-44.0); MEAN CORPUSCULAR HEMOGLOBIN 29.4 pg (26.0-34.0); MEAN CORPUSCULAR HGB CONC 32.5 G/dL (31.0-37.0); MEAN CORPUSCULAR VOLUME 90 fL (80-100); MONOCYTES # (AUTO) 0.5 K/uL (0.1-1.0); MONOCYTES % (AUTO) 8.5 % (2.0-9.0); NEUTROPHILS # (AUTO) 4.2 K/uL (1.8-7.7); NEUTROPHILS % (AUTO) 69.4 % (40.0-70.0); PLATELET COUNT (AUTO) 316 K/uL (150-450); RED BLOOD CELL COUNT(AUTO) 3.66 MIL/uL (4.50-5.90); RED CELL DISTRIBUTION WIDTH 14.5 % (11.5-14.5)
[2020-09-11 11:33] LABS: ANION GAP 6 mmol/L (8-16); CARBON DIOXIDE 29 mmol/L (22-29); CHLORIDE 105 mmol/L (98-107); CREATININE 0.81 mg/dL (0.60-1.30); GLOMERULAR FILTR. RATE CALC > 60 mL/min (>60); GLUCOSE,RANDOM 164 mg/dL (70-110); POTASSIUM 4.1 mmol/L (3.5-5.1); SODIUM SERUM 140 mmol/L (136-145); UREA NITROGEN, BLOOD 11 mg/dL (7-18)
[2020-09-11 15:53] VITALS: BP 117/67
[2020-09-11] MEDS ORDERED: CARV6 PO (17:08)
[2020-09-11] MEDS: ENOXAPARIN SODIUM 30 MG/0.3 ML PF SYRINGE SQ SCH (20:56)
[2020-09-11] MEDS: SENNA 187 MG TABLET PO SCH (20:56)
[2020-09-11] MEDS: ATORVASTATIN CALCIUM 40 MG TABLET PO SCH (20:57)
[2020-09-11 21:45] VITALS: BP 113/66
[2020-09-12] VITALS: BP 117/73
[2020-09-12] MEDS: LANSOPRAZOLE 30 MG SOLUBLE TABLET GT SCH (07:57)
[2020-09-12] MEDS: PRENATAL NO.137/IRON/FOLIC ACID TABLET PO SCH (07:57)
[2020-09-12] MEDS: DOCUSATE SODIUM 250 MG CAPSULE PO SCH (07:57)
[2020-09-12] MEDS: CHOLECALCIFEROL (VIT D3) 1,000 UNITS [25 MCG] TABLET PO SCH (07:57)
[2020-09-12] MEDS: MetFORMIN HCL 500 MG TABLET PO SCH (07:57)
[2020-09-12] MEDS: CARVEDILOL 6.25 MG TABLET PO SCH (07:57)
[2020-09-12] MEDS: ENOXAPARIN SODIUM 30 MG/0.3 ML PF SYRINGE SQ SCH (07:58)
[2020-09-12 08:44] VITALS: BP 147/91
[2020-09-12] MEDS ORDERED: ENOX30DI5 SQ (12:06)
== END 2020-09-12 13:30 | DRG 56 ==
LOC: 2WR 18:30
PROVIDERS: ADMIT Physical Medicine & Rehabilitation; ATTEND Physical Medicine & Rehabilitation
DX: I69.351 Hemiplegia and hemiparesis following cerebral infarction affecting right dominant side (principal); I61.2 Nontraumatic intracerebral hemorrhage in hemisphere, unspecified; R47.01 Aphasia; R13.10 Dysphagia, unspecified; N31.2 Flaccid neuropathic bladder, not elsewhere classified; E11.65 Type 2 diabetes mellitus with hyperglycemia; I10 Essential (primary) hypertension; E78.5 Hyperlipidemia, unspecified; D64.9 Anemia, unspecified; I71.2 Thoracic aortic aneurysm, without rupture
CPT/HCPCS: 70450; 74230; 80048; 80053; 80061; 82962; 83036; 85025; 87081; 92507; 92508; 92526; 92610; 92611; 93970; 93971; 97112; 97116; 97162; 97167; 97530; 97535; 99366; J1650